=== PATIENT | male | born 1960 ===

== ENCOUNTER 2016-09-16 08:51 | Day surgery (SDC) | payer OTHER ==
[2016-09-16 09:31] VITALS: BMI 29.4
[2016-09-16] MEDS ORDERED: Lactated Ringer's 500 ML IV ONE (09:41)
[2016-09-16] MEDS ORDERED: Propofol 10 mg/ml Inj (20 ML) ONE ×2 (10:45→10:56)
[2016-09-16 11:35] VITALS: TEMP 96.9
[2016-09-16 11:36] VITALS: BP 133/97; PULSE 58; RESP 20; O2SAT 100
== END 2016-09-16 13:32 | disposition home or self-care (01) ==
LOC: H.ENDO 08:51
PROVIDERS: ATTEND Internal Medicine Gastroenterology
DX: Z12.11 Encounter for screening for malignant neoplasm of colon (principal); M19.90 Unspecified osteoarthritis, unspecified site; K64.1 Second degree hemorrhoids; K57.30 Diverticulosis of large intestine without perforation or abscess without bleeding

== ENCOUNTER 2017-02-19 08:14 | Day surgery (SDC) | payer OTHER ==
[2017-02-19] MEDS ORDERED: Lactated Ringer's 1,000 ML IV ONE (10:05)
[2017-02-19] MEDS ORDERED: Propofol 10 mg/ml Inj (20 ML) ONE (10:08)
[2017-02-19 10:30] VITALS: TEMP 97
[2017-02-19 10:43] VITALS: BP 121/71; PULSE 61; RESP 14; O2SAT 97
== END 2017-02-19 10:44 | disposition home or self-care (01) ==
LOC: H.ENDO 08:14
PROVIDERS: ATTEND Internal Medicine Gastroenterology
DX: K29.70 Gastritis, unspecified, without bleeding (principal); K44.9 Diaphragmatic hernia without obstruction or gangrene; K29.80 Duodenitis without bleeding; R13.10 Dysphagia, unspecified
CPT/HCPCS: 43239; 88305; J2704; J7120